=== PATIENT | male | born 1930 | race Caucasian/White ===

== ENCOUNTER 2018-11-04 16:42 | Observation (INO) ==
[2018-11-04] MEDS ORDERED: 0.9 % Sodium Chloride 500 ML IVC ONE (17:04)
--- NOTE | 2018-11-04 17:11 | Emergency Department Note ---
Disposition Clinical Impression: Symptomatic anemia Disposition: Still a Patient General Adult HPI - General Chief complaint: ED Recheck/Abnormal Lab/Rx Stated complaint: Low Hemoglobin Time Seen by Provider: 11/04/18 16:56 Source: patient Limitations: no limitations Nursing Notes Reviewed: Yes Vital Signs Reviewed: Yes - History of Present Illness HPI Narrative: Attestation note ED attending note I examined this patient and my medical decision-making was reviewed with the emergency medicine resident Dr. Jeovany Prakash. I agree with the documented findings, disposition and treatment plan as described except to the extent set forth below. Briefly: 88-year-old male recently was scoped and found to have small bleeding lesions in his intestine which were ablated. Patient has been having his hemoglobin checked which is been tingling for the past week or so. Last hemoglobin 7.7 he feels when he stands up documented pass out. Says he feels weak. Patient does take iron and has normally dark stools he is not tachycardic EKG shows no acute ischemic changes. Patient will be typed and crossed for 2 units PRBCs to be transfused with admission. Providing 30 minutes of critical care service for this patient Pain Scale: 0 - Related Data Home Medications Medication Instructions Recorded Confirmed Allopurinol [Zyloprim 100 MG] 100 mg PO DAILY 10/17/18 10/30/18 Aspirin [Lo-Dose Aspirin EC] 81 mg PO DAILY 10/17/18 10/30/18 Atorvastatin Calcium [Lipitor] 10 mg PO DAILY 10/17/18 10/30/18 Cholecalciferol (D-3) [Vitamin D] 1,000 unit PO TID 10/17/18 10/30/18 Glucosamn/Condroitn/C/Mn/[place] 2 tab PO DAILY 10/17/18 10/30/18 [[facility] Glucosamine Chondroitin Tb] Levothyroxine [Synthroid] 50 mcg PO DAILY 10/17/18 10/30/18 Previous Rx's Medication Instructions Recorded Cyanocobalamin (B-12) [Vitamin B12] 1,000 mcg PO DAILY 30 Days #30 10/19/18 tablet Ferrous Sulfate 325 mg PO BIDWM 30 Days #60 tablet 10/19/18 Metoprolol XL (24 HR) Succ [Toprol 12.5 mg PO DAILY 30 Days #15 10/19/18 Xl] tab.er.24h Omeprazole [PriLOSEC] 20 mg PO BIDAC 30 Days #60 10/19/18 capsule. PredniSONE [Deltasone] 10 mg PO QAM 10 Days #40 tablet 10/30/18 Allergies Allergy/AdvReac Type Severity Reaction Status Date / Time No Known Allergies Allergy Verified 10/17/18 17:43 Past Medical History - Past Medical History Medical history: Reports: atrial fibrillation, cancer Psychiatric history: Reports: no psych history - Social History Smoking Status: Never smoker Smokeless Tobacco Status: No Alcohol use: Reports: none Drug use: Reports: none Physical Exam - General Limitations: no limitations General appearance: alert, in no apparent distress Course Vital Signs Temperature 98.3 F 11/04/18 16:44 Pulse Rate 64 11/04/18 16:44 Respiratory Rate 18 11/04/18 16:44 Blood Pressure 133/73 11/04/18 16:44 O2 Sat by Pulse Oximetry 99 11/04/18 16:44 Temperature 98.3 F 11/04/18 16:44 Pulse Rate 64 11/04/18 16:44 Respiratory Rate 18 11/04/18 16:44 Blood Pressure 133/73 11/04/18 16:44 O2 Sat by Pulse Oximetry 99 11/04/18 16:44 Oxygen Delivery Oxygen Delivery Room Air
--- NOTE | 2018-11-04 17:11 | Emergency Department Note ---
Disposition Clinical Impression: Symptomatic anemia Disposition: Admitted As Inpatient Condition: Good Forms: ED Satisfaction Letter Time of Disposition: 18:18 General Adult HPI - General Chief complaint: ED Recheck/Abnormal Lab/Rx Stated complaint: Low Hemoglobin Time Seen by Provider: 11/04/18 16:56 Source: patient Mode of arrival: ambulatory Limitations: no limitations Nursing Notes Reviewed: Yes Vital Signs Reviewed: Yes - History of Present Illness HPI Narrative: Patient is an 88-year-old male that presents the emergency department with family for anemia. The main concern is for the patient's hemoglobin. The patient states that he has been having recurrent anemia that is progressively been trending downward. Patient has been having a hemoglobin around 8.0 for the past couple of blood draws. States the last blood draw was 7.7 was told to come here to the emergency department. Patient states that he is feeling weak and does not have energy. Patient also reports that he just feels much more fatigued. Patient denies any chest pain but does state that he has some increase in his baseline shortness of breath. Patient states that he had been on blood thinners in the hospital when he was diagnosed with age fibrillation but was not discharged on any blood thinners. Patient states that he had a decrease in his hemoglobin so he did have an upper and lower endoscopy which showed mild bleeding vessel in the upper scope which was cauterized. Pain Scale: 0 - Related Data Home Medications Medication Instructions Recorded Confirmed Allopurinol [Zyloprim 100 MG] 100 mg PO DAILY 10/17/18 10/30/18 Aspirin [Lo-Dose Aspirin EC] 81 mg PO DAILY 10/17/18 10/30/18 Atorvastatin Calcium [Lipitor] 10 mg PO DAILY 10/17/18 10/30/18 Cholecalciferol (D-3) [Vitamin D] 1,000 unit PO TID 10/17/18 10/30/18 Glucosamn/Condroitn/C/Mn/[place] 2 tab PO DAILY 10/17/18 10/30/18 [[facility] Glucosamine Chondroitin Tb] Levothyroxine [Synthroid] 50 mcg PO DAILY 10/17/18 10/30/18 Previous Rx's Medication Instructions Recorded Cyanocobalamin (B-12) [Vitamin B12] 1,000 mcg PO DAILY 30 Days #30 10/19/18 tablet Ferrous Sulfate 325 mg PO BIDWM 30 Days #60 tablet 10/19/18 Metoprolol XL (24 HR) Succ [Toprol 12.5 mg PO DAILY 30 Days #15 10/19/18 Xl] tab.er.24h Omeprazole [PriLOSEC] 20 mg PO BIDAC 30 Days #60 10/19/18 capsule. PredniSONE [Deltasone] 10 mg PO QAM 10 Days #40 tablet 10/30/18 Allergies Allergy/AdvReac Type Severity Reaction Status Date / Time No Known Allergies Allergy Verified 10/17/18 17:43 All systems ED: reviewed and negative except as stated. Constitutional: Reports: weakness. Denies: fever Cardiovascular: Denies: chest pain Respiratory: Reports: dyspnea Gastrointestinal: Denies: abdominal pain, nausea, vomiting Endocrine: Reports: fatigue Past Medical History - Past Medical History Medical history: Reports: atrial fibrillation, cancer Psychiatric history: Reports: no psych history - Social History Smoking Status: Never smoker Smokeless Tobacco Status: No Alcohol use: Reports: none Drug use: Reports: none Physical Exam - General Limitations: no limitations General appearance: alert, in no apparent distress - Head Head exam: atraumatic, normocephalic - Eye Eye exam: Present: normal appearance, EOMI - Neck Neck exam: Present: normal inspection, full ROM, trachea midline - Respiratory Respiratory exam: Present: normal lung sounds bilaterally. Absent: respiratory distress, wheezes - Cardiovascular Cardiovascular exam: Present: regular rate, normal rhythm, normal heart sounds, +S1, +S2 - Abdominal Exam Abdominal exam: Present: soft, Non-Tender, normal bowel sounds - Neurological Exam Neurological exam: Present: alert, oriented X3 - Psychiatric Psychiatric exam: Present: normal affect, normal mood - Skin Skin exam: Present: warm, dry, intact Course Vital Signs Temperature 98.3 F 11/04/18 16:44 Pulse Rate 64 11/04/18 16:44 Respiratory Rate 18 11/04/18 16:44 Blood Pressure 133/73 11/04/18 16:44 O2 Sat by Pulse Oximetry 99 11/04/18 16:44 Temperature 98.3 F 11/04/18 16:44 Pulse Rate 64 11/04/18 16:44 Respiratory Rate 18 11/04/18 16:44 Blood Pressure 133/73 11/04/18 16:44 O2 Sat by Pulse Oximetry 99 11/04/18 16:44 Oxygen Delivery Oxygen Delivery Room Air Medical Decision Making - MDM Narrative Medical decision making narrative: We will obtain basic laboratory testing and the patient will need to be admitted to the hospital for further evaluation and management. Patient will be transfus ed here in the ER. Patient will be given one unit of packed red blood cells. His hemoglobin here is 8.0. However due to being symptomatic the patient will require admission to the hospital for further evaluation and management. Patient was hemodynamically stable here in the emergency department. I called and spoke the admitting hospitalist Dr. Alvarado he has accepted the patient to their service. Patient be admitted to the hospital this time for further evaluation and management of his anemia. - Medical Records Medical records reviewed: Yes I reviewed the patient's medical records. - Lab Data Lab results reviewed: Yes I reviewed the patient's lab results. Result diagrams: 11/04/18 17:04 11/04/18 17:04 Lab Results 11/04/18 11/04/18 11/04/18 Range/Units 17:04 17:04 17:09 WBC 10.7 (4.3-11.1) K/mcL RBC 2.36 L (4.19-5.50) M/mcL Hgb 8.0 L (12.9-16.9) g/dL Hct 25.3 L (37.5-50.1) % MCV 107.2 H (83.0-100.0) fL MCH 33.9 H (28.0-33.3) pg MCHC 31.6 (31.6-35.5) g/dL RDW 16.5 H (11.5-14.5) % Plt Count 425 H (140-400) K/mcL MPV 12.1 (9.4-12.4) fL Immature Gran % 9.1 H (0-4) % Seg Neutrophils % 73.8 % Lymphocytes % 11.4 % Monocytes % 5.2 % Eosinophils % 0.2 % Basophils % 0.3 % Neutrophils # 7.9 (1.6-8.9) K/mcL Lymphocytes # 1.2 (0.6-4.6) K/mcL Monocytes # 0.6 (0.0-1.3) K/mcL Eosinophils # 0.0 (0.0-0.6) K/mcL Basophils # 0.0 (0.0-0.2) K/mcL Nucleated RBCs/100 WBC 0.4 H (0) /100 WBC Large Platelets Present A (Not Present) Polychromasia 1+ A (Not Present) Anisocytosis 1+ A (Not Present) Sodium 139 (136-145) mEq/L Potassium 4.7 (3.5-5.1) mEq/L Chloride 110 H (98-107) mEq/L Carbon Dioxide 20 L (23-29) mEq/L BUN 33 H (8-23) mg/dL Creatinine 1.43 H (0.70-1.30) mg/dL Est GFR ( Amer) 57 L (> 60) Est GFR (Non-Af Amer) 47 L (> 60) BUN/Creatinine Ratio 23 (6-26) Glucose 105 (70-105) mg/dL Calculated Osmolality 296 (280-300) Calcium 8.9 (8.6-10.3) mg/dL Total Bilirubin 0.5 (0.3-1.0) mg/dL Direct Bilirubin 0.1 (0.0-0.2) mg/dL Indirect Bilirubin 0.4 (0.0-1.2) mg/dL AST 16 (13-39) Units/L ALT 37 (7-52) Units/L Alkaline Phosphatase 82 (34-104) Units/L Troponin I 0.03 (< 0.04) ng/mL Serum Total Protein 5.8 L (6.4-8.9) g/dL Albumin 3.5 (3.5-5.7) g/dL Globulin 2.3 L (2.4-3.5) g/dL Albumin/Globulin Ratio 1.5 (1.1-2.2) Blood Type O NEGATIVE - Radiology Data Radiology results reviewed: Yes I reviewed the patient's radiology results. - EKG Data EKG #1 EKG attestation: Yes I reviewed and interpreted this EKG. EKG results narrative: EKG shows a paced rhythm which shows a heart rate of 65 bpm, HI interval 174, curious duration of 148, QTc of 469. No evidence of STEMI and EKG.
[2018-11-04 17:26] LABS: Basophils % 0.3 %; Eosinophils % 0.2 %; Hematocrit 25.3 % (37.5-50.1); Immature Granulocytes % 9.1 % (0-4); Lymphocytes # 1.2 K/mcL (0.6-4.6); Lymphocytes % 11.4 %; Mean Corpuscular HGB Conc 31.6 g/dL (31.6-35.5); Mean Corpuscular Hemoglobin 33.9 pg (28.0-33.3); Mean Corpuscular Volume 107.2 fL (83.0-100.0); Mean Platelet Volume 12.1 fL (9.4-12.4); Monocytes # 0.6 K/mcL (0.0-1.3); Monocytes % 5.2 %; Neutrophils # 7.9 K/mcL (1.6-8.9); Nucleated Red Blood Cells 0.4 /100 WBC (0); Platelet Count 425 K/mcL (140-400); Red Blood Count 2.36 M/mcL (4.19-5.50); Red Cell Distribution Width 16.5 % (11.5-14.5); Segmented Neutrophils % 73.8 %
[2018-11-04 17:48] LABS: Albumin 3.5 g/dL (3.5-5.7); Albumin/Globulin Ratio 1.5 (1.1-2.2); Bilirubin,Direct 0.1 mg/dL (0.0-0.2); Bilirubin,Indirect 0.4 mg/dL (0.0-1.2); Bilirubin,Total 0.5 mg/dL (0.3-1.0); Calcium 8.9 mg/dL (8.6-10.3); Globulin 2.3 g/dL (2.4-3.5); Potassium 4.7 mEq/L (3.5-5.1); Total Protein 5.8 g/dL (6.4-8.9); Troponin I 0.03 ng/mL (< 0.04)
[2018-11-04 17:55] LABS: Large Platelets Present (Not Present)
[2018-11-04 17:56] LABS: Polychromasia 1+ (Not Present)
[2018-11-04 17:57] LABS: Anisocytosis 1+ (Not Present)
[2018-11-04] MEDS ORDERED: 0.9 % Sodium Chloride 250 ML ONE (19:04)
--- NOTE | 2018-11-04 23:09 | Internal Med History&Physical ---
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 He also had nonbleeding internal hemorrhoids. It was recommended he be on a PPI and have outpatient follow-up. As an outpatient he has had multiple hemoglobin checks first reported at 8.7 then subsequently seen at 8.0 on 2 occasions which reassured his PCP for stability however today he was told that his last blood draw showed his hemoglobin at 7.7 and was told to come to emergency department. He reports feeling significantly weaker than usual, lethargic and apathetic. He says he is easily fatigued with minor efforts and feels lightheaded. He has been more short of breath than his baseline. Not had any nausea, vomiting, abdominal pain, hematemesis or melena noted. He was not discharged on anticoagulants. Vitals: Reviewed General: Well developed male lying comfortably in bed in no acute distress. Skin: Warm, pale, supple. HEENT: Moist mucous membranes. + conjunctivae pallor. Neck: No lymphadenopathy. No JVD. No carotid bruits. No palpable thyroid. Chest: Normal thoracic expansion. Normal breath sounds. Clear to auscultation. Heart: Normal S1 & S2; rhythmic. No rubs or murmurs. Abdomen: Non-distended, soft and non-tender to palpation. No peritoneal reaction. Extremities: No clubbing, cyanosis or edema. No calf tenderness. Normal distal pulses. Neurological: Awake, alert and oriented to person, place and time. No focal deficits. Psych: Affect appropriate. Past Med Surg Social Fam HX - Past Medical History Medical history: atrial fibrillation, cancer Additional medical history: Skin Cancer Psychiatric history: no psych history - Past Surgical History Surgical History: pacemaker Additional surgical history: Brain Tumor removed. Skin Cancer removed - Social History Smoking Status: Never smoker Smokeless Tobacco Status: No Alcohol use: none Drug use: none Internal Medicine - H&P: Meds Allopurinol [Zyloprim 100 MG] 100 mg PO DAILY 10/17/18 [History] Aspirin [Lo-Dose Aspirin EC] 81 mg PO DAILY 10/17/18 [History] Atorvastatin Calcium [Lipitor] 10 mg PO DAILY 10/17/18 [History] Cholecalciferol (D-3) [Vitamin D] 1,000 unit PO TID 10/17/18 [History] Glucosamn/Condroitn/C/Mn/[place] [[facility] Glucosamine Chondroitin Tb] 2 tab PO DAILY 10/17/18 [History] Levothyroxine [Synthroid] 50 mcg PO DAILY 10/17/18 [History] Cyanocobalamin (B-12) [Vitamin B12] 1,000 mcg PO DAILY 30 Days #30 tablet 10/19/18 [Rx] Ferrous Sulfate 325 mg PO BIDWM 30 Days #60 tablet 10/19/18 [Rx] Metoprolol XL (24 HR) Succ [Toprol Xl] 12.5 mg PO DAILY 30 Days #15 tab.er.24h 10/19/18 [Rx] Omeprazole [PriLOSEC] 20 mg PO BIDAC 30 Days #60 capsule.dr 10/19/18 [Rx] PredniSONE [Deltasone] 10 mg PO QAM 10 Days #40 tablet 10/30/18 [Rx] Allergy/AdvReac Type Severity Reaction Status Date / Time No Known Allergies Allergy Verified 10/17/18 17:43 All Systems PM: A 10-system review of systems was performed and is negative for pertinent findings except as documented above in the HPI. Family history reviewed and found non-contributory. - Constitutional Vitals: Temp Pulse Resp BP Pulse Ox 98.0 F 60 15 110/64 97 11/04/18 22:32 11/04/18 22:32 11/04/18 22:32 11/04/18 22:32 11/04/18 22:32 Exam: . Internal Med - H&P Results - Labs CBC & Chem 7: 11/04/18 17:04 11/04/18 17:04 Labs: Short CBC 11/04/18 Range/Units 17:04 WBC 10.7 (4.3-11.1) K/mcL Hgb 8.0 L (12.9-16.9) g/dL Hct 25.3 L (37.5-50.1) % Plt Count 425 H (140-400) K/mcL Neutrophils # 7.9 (1.6-8.9) K/mcL BMP 11/04/18 17:04 Sodium 139 Potassium 4.7 Chloride 110 H Carbon Dioxide 20 L BUN 33 H Creatinine 1.43 H Glucose 105 Calcium 8.9 Cardiac Enzymes 11/04/18 Range/Units 17:04 Troponin I 0.03 (< 0.04) ng/mL Liver Function 11/04/18 Range/Units 17:04 Total Bilirubin 0.5 (0.3-1.0) mg/dL Direct Bilirubin 0.1 (0.0-0.2) mg/dL AST 16 (13-39) Units/L ALT 37 (7-52) Units/L Alkaline Phosphatase 82 (34-104) Units/L Albumin 3.5 (3.5-5.7) g/dL - Assessment and Plan (1) Symptomatic anemia Current Visit: Yes Status: Acute Assessment and plan: Concern that it may be secondary to a slowly bleeding gastrointestinal lesion. Will transfuse 1U pRBC tonight and recheck his values in the morning. Will give IV PPI BID and keep NPO in the interim. He may require a second look scope or a bleeding scan at some point if this continues. (2) Paroxysmal atrial fibrillation Current Visit: Yes Status: Acute Assessment and plan: No antiplatelet/anticoagulation for now. (3) Gout Current Visit: Yes Status: Chronic Assessment and plan: Had a recent flare for which he was placed on steroids. Will discontinue prednisone as these could cause stomach ulcers if not given adequate gastric protection. Currently he is without pain. Qualifiers: Gout site: toe Gout etiology: unspecified cause Chronicity: chronic Laterality: right Presence of tophus: without tophus Qualified Code(s): [id number].9XX0 - Chronic gout, unspecified, without tophus (tophi) (4) Pacemaker Current Visit: No Status: Chronic - Time Spent With Patient Total time spent is greater than 50% in coordination of care (as documented) at patient's floor/unit and/or counseling patient: Greater than 35 minutes
[2018-11-05 03:37] LABS: BUN/Creatinine Ratio 24 (6-26); Blood Urea Nitrogen 30 mg/dL (8-23); Calcium 8.1 mg/dL (8.6-10.3); Carbon Dioxide 20 mEq/L (23-29); Chloride 112 mEq/L (98-107); Glucose 78 mg/dL (70-105); Osmolality,Calculated 293 (280-300); Potassium 3.9 mEq/L (3.5-5.1); Sodium 139 mEq/L (136-145); eGFR For Non-African Americans 54 (> 60)
[2018-11-05 03:38] LABS: Basophils % 0.3 %; Eosinophils # 0.1 K/mcL (0.0-0.6); Eosinophils % 1.1 %; Hematocrit 24.9 % (37.5-50.1); Immature Granulocytes % 7.8 % (0-4); Lymphocytes % 27.5 %; Mean Corpuscular HGB Conc 32.1 g/dL (31.6-35.5); Mean Corpuscular Hemoglobin 33.8 pg (28.0-33.3); Mean Corpuscular Volume 105.1 fL (83.0-100.0); Monocytes # 0.6 K/mcL (0.0-1.3); Monocytes % 8.1 %; Neutrophils # 4.1 K/mcL (1.6-8.9); Nucleated Red Blood Cells 0.4 /100 WBC (0); Platelet Count 294 K/mcL (140-400); Red Blood Count 2.37 M/mcL (4.19-5.50); Red Cell Distribution Width 17.9 % (11.5-14.5); Segmented Neutrophils % 55.2 %
[2018-11-05 04:17] LABS: Anisocytosis 1+ (Not Present); Platelet Estimate Normal (Normal); Polychromasia 1+ (Not Present)
[2018-11-05] MEDS: Pantoprazole 40 MG VIAL IVP SCH ×2 (05:38→17:40)
[2018-11-05] MEDS ORDERED: predniSONE 10 MG TABLET PO SCH (09:00)
[2018-11-05] MEDS: Cyanocobalamin (B-12) 1,000 MCG TABLET PO SCH (09:48)
[2018-11-05] MEDS: Metoprolol XL (24 HR) Succ 25 MG TAB.ER.24H PO SCH (09:49)
--- NOTE | 2018-11-05 11:19 | General Surgery Consult Note ---
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 which were cauterized, small hiatal hernia and mild Schatzki ring -Colonoscopy 10/19/18: 2 nonbleeding polyps ascending colon, diverticulosis without evidence of bleeding, non bleeding internal hemorrhoids -Hgb 8 on arrival which is about what has been over last couple weeks -No hematemesis, hematochezia, melena or evidence of any bleeding -As no evidence of high volume bleed, recent reassuring upper/lower scopes there is no indication to repeat scopes -Surgery will sign off but available if symptoms change History of Present Illness Consult date: 11/05/18 Reason for consult: other (Symptomatic anemia) Requesting physician: Víctor Emery History of present illness: 88 year old man with pmh with pacemaker 2/2 syncopal episodes, recent dx pafib 2 weeks ago during which he was started on heparin infusion and had acute drop in hgb from 10-7.6. He had upper/lower endoscopies which did not show evidence of active bleeding source. Multiple checks of hgb over last couple weeks showed fairly stable hgb of . Yesterday, his hgb was found to be 7.7 and told to go to ED. He has been having more fatigue, weakness, lethargy compared to normal and occasional lightheadedness and dyspnea. He denies abdominal pain, N/V, hematemesis, hematochezia, melena or lc bleeding. He received 1 unit prbc and is somewhat improved feeling today. He again denies abdominal pain, N/V, hematemesis, hematochezia, melena or lc bleeding since admission. Past Med Surg Social Fam HX - Past Medical History Medical history: atrial fibrillation, cancer Additional medical history: Skin Cancer Psychiatric history: no psych history - Past Surgical History Surgical History: pacemaker Additional surgical history: Brain Tumor removed. Skin Cancer removed - Social History Smoking Status: Never smoker Smokeless Tobacco Status: No Alcohol use: none Drug use: none Medications and Allergies RX: Allopurinol [Zyloprim 100 MG] 100 mg PO DAILY 10/17/18 [History] RX: Aspirin [Lo-Dose Aspirin EC] 81 mg PO DAILY 10/17/18 [History] RX: Atorvastatin Calcium [Lipitor] 10 mg PO DAILY 10/17/18 [History] RX: Cholecalciferol (D-3) [Vitamin D] 1,000 unit PO TID 10/17/18 [History] RX: Glucosamn/Cond[place]n/C/Mn/[place] [[facility] Glucosamine Chondroitin Tb] 2 tab PO DAILY 10/17/18 [History] RX: Levothyroxine [Synthroid] 50 mcg PO DAILY 10/17/18 [History] RX: Cyanocobalamin (B-12) [Vitamin B12] 1,000 mcg PO DAILY 30 Days #30 tablet 10/19/18 [Rx] RX: Ferrous Sulfate 325 mg PO BIDWM 30 Days #60 tablet 10/19/18 [Rx] RX: Metoprolol XL (24 HR) Succ [Toprol Xl] 12.5 mg PO DAILY 30 Days #15 tab.er.24h 10/19/18 [Rx] RX: Omeprazole [PriLOSEC] 20 mg PO BIDAC 30 Days #60 capsule. 10/19/18 [Rx] RX: PredniSONE [Deltasone] 10 mg PO QAM 10 Days #40 tablet 10/30/18 [Rx] Allergy/AdvReac Type Severity Reaction Status Date / Time No Known Allergies Allergy Verified 10/17/18 17:43 Review of Systems All systems PM: The remainder of the systems were reviewed and are negative General Surgery Exam Initial Vital Signs Temp Pulse Resp BP Pulse Ox 98.3 F 64 18 133/73 99 11/04/18 16:44 11/04/18 16:44 11/04/18 16:44 11/04/18 16:44 11/04/18 16:44 - General physical appearance well developed, well nourished, no distress - Eyes normal ocular movement - ENT normal mucosa - Neck trachea midline - Respiratory normal expansion, normal respiratory effort, clear to auscultation - Cardiovascular Cardiovascular exam: Present: RRR. Absent: bradycardia, tachycardia, irregular rhythm, murmurs, clicks, rubs, gallop, distant heart sounds, JVD - Abdomen Abdomen general surgery: Present: bowel sounds present, soft, non tender. Absent: distended, tender, organomegaly, masses, guarding, rebound, rigid - Integumentary Integumentary general surgery: Present: warm and dry, no abnormal pigmentation - Neurologic Present: CN 2-12 grossly intact, normal coordination - Psychiatric Psychiatric general surgery: Present: A&Ox3, appropriate Exam Initial Vital Signs Temp Pulse Resp BP Pulse Ox 98.3 F 64 18 133/73 99 11/04/18 16:44 11/04/18 16:44 11/04/18 16:44 11/04/18 16:44 11/04/18 16:44 Results - Labs 11/05/18 02:49 11/05/18 02:49 Abnormal lab results RBC 2.37 M/mcL (4.19-5.50) L 11/05/18 02:49 Hgb 8.0 g/dL (12.9-16.9) L 11/05/18 02:49 Hct 24.9 % (37.5-50.1) L 11/05/18 02:49 MCV 105.1 fL (83.0-100.0) H 11/05/18 02:49 MCH 33.8 pg (28.0-33.3) H 11/05/18 02:49 RDW 17.9 % (11.5-14.5) H 11/05/18 02:49 Immature Gran % 7.8 % (0-4) H 11/05/18 02:49 Nucleated RBCs/100 WBC 0.4 /100 WBC (0) H 11/05/18 02:49 Large Platelets Present (Not Present) A 11/04/18 17:04 Polychromasia 1+ (Not Present) A 11/05/18 02:49 Anisocytosis 1+ (Not Present) A 11/05/18 02:49 Chloride 112 mEq/L (98-107) H 11/05/18 02:49 Carbon Dioxide 20 mEq/L (23-29) L 11/05/18 02:49 BUN 30 mg/dL (8-23) H 11/05/18 02:49 Est GFR (Non-Af Amer) 54 (> 60) L 11/05/18 02:49 Calcium 8.1 mg/dL (8.6-10.3) L 11/05/18 02:49 Serum Total Protein 5.8 g/dL (6.4-8.9) L 11/04/18 17:04 Globulin 2.3 g/dL (2.4-3.5) L 11/04/18 17:04 Diabetes panel 11/04/18 11/05/18 Range/Units 17:04 02:49 Sodium 139 139 (136-145) mEq/L Potassium 4.7 3.9 (3.5-5.1) mEq/L Chloride 110 H 112 H (98-107) mEq/L Carbon Dioxide 20 L 20 L (23-29) mEq/L BUN 33 H 30 H (8-23) mg/dL Creatinine 1.43 H 1.27 (0.70-1.30) mg/dL Glucose 105 78 (70-105) mg/dL Calcium 8.9 8.1 L (8.6-10.3) mg/dL AST 16 (13-39) Units/L ALT 37 (7-52) Units/L Alkaline Phosphatase 82 (34-104) Units/L Albumin 3.5 (3.5-5.7) g/dL Calcium panel 11/04/18 11/05/18 Range/Units 17:04 02:49 Calcium 8.9 8.1 L (8.6-10.3) mg/dL Albumin 3.5 (3.5-5.7) g/dL Pituitary panel 11/04/18 11/05/18 Range/Units 17:04 02:49 Sodium 139 139 (136-145) mEq/L Potassium 4.7 3.9 (3.5-5.1) mEq/L Chloride 110 H 112 H (98-107) mEq/L Carbon Dioxide 20 L 20 L (23-29) mEq/L BUN 33 H 30 H (8-23) mg/dL Creatinine 1.43 H 1.27 (0.70-1.30) mg/dL Glucose 105 78 (70-105) mg/dL Calcium 8.9 8.1 L (8.6-10.3) mg/dL Adrenal panel 11/04/18 11/05/18 Range/Units 17:04 02:49 Sodium 139 139 (136-145) mEq/L Potassium 4.7 3.9 (3.5-5.1) mEq/L Chloride 110 H 112 H (98-107) mEq/L Carbon Dioxide 20 L 20 L (23-29) mEq/L BUN 33 H 30 H (8-23) mg/dL Creatinine 1.43 H 1.27 (0.70-1.30) mg/dL Glucose 105 78 (70-105) mg/dL Calcium 8.9 8.1 L (8.6-10.3) mg/dL Total Bilirubin 0.5 (0.3-1.0) mg/dL AST 16 (13-39) Units/L ALT 37 (7-52) Units/L Alkaline Phosphatase 82 (34-104) Units/L Albumin 3.5 (3.5-5.7) g/dL All other labs normal. Consult Discharge Plan - Plan Referrals: Damian Anaya, [Primary Care Provider] - 11/25/18 3:30 pm <Dipak Block - Last Filed: 11/05/18 17:05> Date of Encounter: 11/05/18 Review of Systems All systems PM: The remainder of the systems were reviewed and are negative General Surgery Exam Initial Vital Signs Temp Pulse Resp BP Pulse Ox 98.3 F 64 18 133/73 99 11/04/18 16:44 11/04/18 16:44 11/04/18 16:44 11/04/18 16:44 11/04/18 16:44 Exam Initial Vital Signs Temp Pulse Resp BP Pulse Ox 98.3 F 64 18 133/73 99 11/04/18 16:44 11/04/18 16:44 11/04/18 16:44 11/04/18 16:44 11/04/18 16:44 Results - Labs 11/05/18 02:49 11/05/18 02:49 Abnormal lab results RBC 2.37 M/mcL (4.19-5.50) L 11/05/18 02:49 Hgb 8.0 g/dL (12.9-16.9) L 11/05/18 02:49 Hct 24.9 % (37.5-50.1) L 11/05/18 02:49 MCV 105.1 fL (83.0-100.0) H 11/05/18 02:49 MCH 33.8 pg (28.0-33.3) H 11/05/18 02:49 RDW 17.9 % (11.5-14.5) H 11/05/18 02:49 Immature Gran % 7.8 % (0-4) H 11/05/18 02:49 Nucleated RBCs/100 WBC 0.4 /100 WBC (0) H 11/05/18 02:49 Large Platelets Present (Not Present) A 11/04/18 17:04 Polychromasia 1+ (Not Present) A 11/05/18 02:49 Anisocytosis 1+ (Not Present) A 11/05/18 02:49 Chloride 112 mEq/L (98-107) H 11/05/18 02:49 Carbon Dioxide 20 mEq/L (23-29) L 11/05/18 02:49 BUN 30 mg/dL (8-23) H 11/05/18 02:49 Est GFR (Non-Af Amer) 54 (> 60) L 11/05/18 02:49 Calcium 8.1 mg/dL (8.6-10.3) L 11/05/18 02:49 Serum Total Protein 5.8 g/dL (6.4-8.9) L 11/04/18 17:04 Globulin 2.3 g/dL (2.4-3.5) L 11/04/18 17:04 Diabetes panel 11/04/18 11/05/18 Range/Units 17:04 02:49 Sodium 139 139 (136-145) mEq/L Potassium 4.7 3.9 (3.5-5.1) mEq/L Chloride 110 H 112 H (98-107) mEq/L Carbon Dioxide 20 L 20 L (23-29) mEq/L BUN 33 H 30 H (8-23) mg/dL Creatinine 1.43 H 1.27 (0.70-1.30) mg/dL Glucose 105 78 (70-105) mg/dL Calcium 8.9 8.1 L (8.6-10.3) mg/dL AST 16 (13-39) Units/L ALT 37 (7-52) Units/L Alkaline Phosphatase 82 (34-104) Units/L Albumin 3.5 (3.5-5.7) g/dL Calcium panel 11/04/18 11/05/18 Range/Units 17:04 02:49 Calcium 8.9 8.1 L (8.6-10.3) mg/dL Albumin 3.5 (3.5-5.7) g/dL Pituitary panel 11/04/18 11/05/18 Range/Units 17:04 02:49 Sodium 139 139 (136-145) mEq/L Potassium 4.7 3.9 (3.5-5.1) mEq/L Chloride 110 H 112 H (98-107) mEq/L Carbon Dioxide 20 L 20 L (23-29) mEq/L BUN 33 H 30 H (8-23) mg/dL Creatinine 1.43 H 1.27 (0.70-1.30) mg/dL Glucose 105 78 (70-105) mg/dL Calcium 8.9 8.1 L (8.6-10.3) mg/dL Adrenal panel 11/04/18 11/05/18 Range/Units 17:04 02:49 Sodium 139 139 (136-145) mEq/L Potassium 4.7 3.9 (3.5-5.1) mEq/L Chloride 110 H 112 H (98-107) mEq/L Carbon Dioxide 20 L 20 L (23-29) mEq/L BUN 33 H 30 H (8-23) mg/dL Creatinine 1.43 H 1.27 (0.70-1.30) mg/dL Glucose 105 78 (70-105) mg/dL Calcium 8.9 8.1 L (8.6-10.3) mg/dL Total Bilirubin 0.5 (0.3-1.0) mg/dL AST 16 (13-39) Units/L ALT 37 (7-52) Units/L Alkaline Phosphatase 82 (34-104) Units/L Albumin 3.5 (3.5-5.7) g/dL All other labs normal. - Attending Attestation I examined this patient and my medical decision-making was reviewed with the Resident Physician. I agree with the documented findings, disposition and treatment plan as described except to the extent set forth below. The patient is seen and evaluated on morning rounds with resident. I personally reviewed the consult and EGD and colonoscopy performed by Dr. South just 2 weeks ago. The patient had some arteriovenous malformations that were not actively bleeding at that time and were not treated. Since that time the patient has remained anemic. The patient denies seeing visible bleeding in the stool or any hematemesis. He denies any melanotic stools. At this point there is no clinical sign of new onset gastrointestinal bleeding that may result in this level of anemia. I do not recommend repeat endoscopy or colonoscopy at this point unless there is clinical bleeding Dipak Block MD FACS
[2018-11-05] MEDS: predniSONE 10 MG TABLET PO SCH (12:24)
--- NOTE | 2018-11-05 15:15 | Internal Med Progress Note ---
Hospitalist Progress Note - Encounter Date of Encounter: 11/05/18 Time of Encounter: 15:12 - Subjective Interval History: I have seen and evaluated the patient at bedside. Patient voices no complaints, denies chest pain, shortness of breath, nausea or vomiting. - Exam Vitals: Temp Pulse Resp BP Pulse Ox 97.7 F 94 14 102/64 97 11/05/18 07:38 11/05/18 07:38 11/05/18 07:38 11/05/18 07:38 11/05/18 07:38 Exam: Vitals: Reviewed. General: Alert and oriented 4. In no distress. Skin: Normal color, no rash, no lesions. HEENT: EOM, pupils equal, round and reactive. Cardiovascular: irregularly, irregular, normal S1 & S2, no rubs, murmurs or gallops. Lungs: CTA b/l, no wheezes or crackles. Abdomen: Soft, non-tender, no rigidity. Extremities: No deformity, no edema Neurological: Normal cognition and motor skills. Rest of the physical exam is non contributory - Assessment and Plan (1) Symptomatic anemia Current Visit: Yes Status: Acute Assessment and Plan: Macrocytic anemia with recent GI workup, negative for bleed. Continue ferrous sulfate 325 by mouth twice a day, and B12 replacement. Will monitor H&H in patient for at least 24 hours and will transfuse per protocol Surgery was consulted recommended against intervention as patient had a resent GI work up and was negative for active bleeding. Continue PPIs repeat cbc at 7pm (2) Paroxysmal atrial fibrillation Current Visit: Yes Status: Chronic Assessment and Plan: Rate controlled on metoprolol 2.5 mg by mouth daily. Off anticoagulations due to history of anemia requiring blood transfusion. and angidysplacia on EGD (3) Gout Current Visit: Yes Status: Chronic Assessment and Plan: Patient on a prednisone taper, continue home medication. On allopurinol 100 mg by mouth daily. (4) Hyperlipidemia Current Visit: Yes Status: Chronic Assessment and Plan: On atorvastatin 10 mg by mouth daily. DVT Prophylaxis: Intermittent pneumatic compression for DVT prophylaxis. - Summary of Assessment and Plan Summary of Assessment and Plan: Patient to remain in the hospital to monitor H&H. Potential discharge tomorrow morning. - Time Spent with Patient Total time spent is greater than 50% in coordination of care (as documented) at patient's floor/unit and/or counseling patient: Greater than 35 minutes (40) Plan of Care Discussed with: patient (and the nurse) Internal Medicine: Result - Labs CBC & Chem 7: 11/05/18 02:49 11/05/18 02:49 Labs: Short CBC 11/04/18 11/05/18 Range/Units 17:04 02:49 WBC 10.7 7.4 (4.3-11.1) K/mcL Hgb 8.0 L 8.0 L (12.9-16.9) g/dL Hct 25.3 L 24.9 L (37.5-50.1) % Plt Count 425 H 294 (140-400) K/mcL Neutrophils # 7.9 4.1 (1.6-8.9) K/mcL BMP 11/04/18 11/05/18 17:04 02:49 Sodium 139 139 Potassium 4.7 3.9 Chloride 110 H 112 H Carbon Dioxide 20 L 20 L BUN 33 H 30 H Creatinine 1.43 H 1.27 Glucose 105 78 Calcium 8.9 8.1 L Cardiac Enzymes 11/04/18 Range/Units 17:04 Troponin I 0.03 (< 0.04) ng/mL Liver Function 11/04/18 Range/Units 17:04 Total Bilirubin 0.5 (0.3-1.0) mg/dL Direct Bilirubin 0.1 (0.0-0.2) mg/dL AST 16 (13-39) Units/L ALT 37 (7-52) Units/L Alkaline Phosphatase 82 (34-104) Units/L Albumin 3.5 (3.5-5.7) g/dL Consult Discharge Plan - Plan Referrals: Damian Anaya DO [Primary Care Provider] - 11/25/18 3:30 pm (3) Gout Qualifiers: Gout site: toe Gout etiology: unspecified cause Chronicity: chronic Laterality: right Presence of tophus: without tophus Qualified Code(s): M1A.9XX0 - Chronic gout, unspecified, without tophus (tophi) (4) Hyperlipidemia Qualifiers: Hyperlipidemia type: unspecified Qualified Code(s): E78.5 - Hyperlipidemia, unspecified
[2018-11-05 19:33] LABS: Basophils % 0.2 %; Eosinophils % 0.3 %; Hematocrit 27.8 % (37.5-50.1); Immature Granulocytes % 10.5 % (0-4); Lymphocytes # 0.8 K/mcL (0.6-4.6); Lymphocytes % 12.2 %; Mean Corpuscular HGB Conc 32.4 g/dL (31.6-35.5); Mean Corpuscular Hemoglobin 34.1 pg (28.0-33.3); Mean Corpuscular Volume 105.3 fL (83.0-100.0); Mean Platelet Volume 12.3 fL (9.4-12.4); Monocytes # 0.4 K/mcL (0.0-1.3); Monocytes % 6.3 %; Neutrophils # 4.4 K/mcL (1.6-8.9); Nucleated Red Blood Cells 0.3 /100 WBC (0); Platelet Count 323 K/mcL (140-400); Red Blood Count 2.64 M/mcL (4.19-5.50); Red Cell Distribution Width 18.5 % (11.5-14.5); Segmented Neutrophils % 70.5 %
[2018-11-05 19:50] LABS: Ovalocytes 1+ (Not Present)
[2018-11-05 19:51] LABS: Platelet Estimate Normal (Normal); Tear Drop Cells 1+ (Not Present)
[2018-11-06] MEDS: Pantoprazole 40 MG VIAL IVP SCH (06:21)
[2018-11-06 06:59] VITALS: BP 100/56
[2018-11-06] MEDS: Metoprolol XL (24 HR) Succ 25 MG TAB.ER.24H PO SCH (09:07)
[2018-11-06] MEDS: Cyanocobalamin (B-12) 1,000 MCG TABLET PO SCH (09:07)
[2018-11-06] MEDS: predniSONE 10 MG TABLET PO SCH (09:07)
[2018-11-06 09:30] LABS: Hematocrit 30.1 % (37.5-50.1); Hemoglobin 9.5 g/dL (12.9-16.9); Mean Corpuscular HGB Conc 31.6 g/dL (31.6-35.5); Mean Corpuscular Hemoglobin 33.3 pg (28.0-33.3); Mean Corpuscular Volume 105.6 fL (83.0-100.0); Mean Platelet Volume 12.2 fL (9.4-12.4); Monocytes # 0.7 K/mcL (0.0-1.3); Nucleated Red Blood Cells 0.3 /100 WBC (0); Platelet Count 317 K/mcL (140-400); Red Blood Count 2.85 M/mcL (4.19-5.50)
[2018-11-06 09:43] LABS: Calcium 8.9 mg/dL (8.6-10.3); Phosphorous 3.4 mg/dL (2.7-4.5); Potassium 4.2 mEq/L (3.5-5.1)
[2018-11-06 10:31] LABS: Eosinophils # 0.2 K/mcL (0.0-0.6); Lymphocytes # 1.8 K/mcL (0.6-4.6); Neutrophils # 5.1 K/mcL (1.6-8.9); Platelet Estimate Normal (Normal)
--- NOTE | 2018-11-06 12:12 | Discharge Summary ---
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 We admitted him with symptomatic anemia. His hemoglobin at admission was 8.0. It was 8.9 (10/19/18), when he was leaving the hospital after previous hospitalization. During that hospitalization we discovered him to have atrial fibrillation. The patient was put on IV heparin drip. Then he developed GI bleeding. GI service was consulted; they proceeded with upper and lower endoscopy. They found 2 nonbleeding angiodysplastic lesions in the stomach. They were catheterized. They also found 2 sessile nonbleeding polyps in the descending colon and multiple large diverticula in the sigmoid colon (without evidence for bleeding). They also found nonbleeding internal hemorrhoids. During this hospitalization we did not find any active bleeding. His hemoglobin was stable. He felt better after transfusion of 1 unit of packed red blood cells. The patient was not getting anticoagulation before this hospitalization and during this hospitalization. We decided not to start anticoagulation after this discharge. EKG done at admission showed atrial sensed ventricular paced complexes with a rate of 65/min. CONDITION AT DISCHARGE: He feels good. Denies abdominal pain, nausea and vomiting. Denies chest pain and difficulty breathing. He has normal urination. Skin: Free of rash and discoloration. Respiratory: Normal breath sounds with no crackles and wheezes bilaterally. CV: Heart is regular with no gallop or murmur. GI: Abdomen is flat and soft with no palpable mass or visceromegaly. Neuro exam: There is no focal deficits. Normal speech, swallowing and gait. SEE DISCHARGE ORDERS/MEDICATIONS The patient will be checking his H&H every month for at least 3-6 monthstarting in 2 weeks. Anticoagulation can be started sometime laterwhen he does not show any GI bleeding for prolonged periods of time. Discharge discussed with: patient, family - Time Spent with Patient Total time spent providing and/or coordinating discharge services: Time spent: Greater than 30 minutes Specific discharge activities: H&H every month for 6 months; starting in about 2 weeks... - Discharge Medications Prescriptions: Continue Glucosamn/[place]n/C/Mn/[place] [[facility] Glucosamine Chondroitin Tb] 2 tab PO DAILY Cholecalciferol (D-3) [Vitamin D] 1,000 unit PO TID Aspirin [Lo-Dose Aspirin EC] 81 mg PO DAILY Atorvastatin Calcium [Lipitor] 10 mg PO DAILY Allopurinol [Zyloprim 100 MG] 100 mg PO DAILY Levothyroxine [Synthroid] 50 mcg PO DAILY Cyanocobalamin (B-12) [Vitamin B12] 1,000 mcg PO DAILY 30 Days #30 tablet Ferrous Sulfate 325 mg PO BIDWM 30 Days #60 tablet Metoprolol XL (24 HR) Succ [Toprol Xl] 12.5 mg PO DAILY 30 Days #15 tab.er.24h Omeprazole [PriLOSEC] 20 mg PO BIDAC 30 Days #60 capsule.dr Discontinued PredniSONE [Deltasone] 10 mg PO QAM 10 Days #40 tablet Home Medications: Allopurinol [Zyloprim 100 MG] 100 mg PO DAILY 10/17/18 [History] Aspirin [Lo-Dose Aspirin EC] 81 mg PO DAILY 10/17/18 [History] Atorvastatin Calcium [Lipitor] 10 mg PO DAILY 10/17/18 [History] Cholecalciferol (D-3) [Vitamin D] 1,000 unit PO TID 10/17/18 [History] Glucosamn/[place]/C/Mn/[place] [[facility] Glucosamine Chondroitin Tb] 2 tab PO DAILY 10/17/18 [History] Levothyroxine [Synthroid] 50 mcg PO DAILY 10/17/18 [History] Cyanocobalamin (B-12) [Vitamin B12] 1,000 mcg PO DAILY 30 Days #30 tablet 10/19/18 [Rx] Ferrous Sulfate 325 mg PO BIDWM 30 Days #60 tablet 10/19/18 [Rx] Metoprolol XL (24 HR) Succ [Toprol Xl] 12.5 mg PO DAILY 30 Days #15 tab.er.24h 10/19/18 [Rx] Omeprazole [PriLOSEC] 20 mg PO BIDAC 30 Days #60 capsule.dr 10/19/18 [Rx] Allergies/Adverse Reactions: Allergy/AdvReac Type Severity Reaction Status Date / Time No Known Allergies Allergy Verified 10/17/18 17:43 Date of admission: 11/04/18 19:07 Primary care physician: Damian Anaya DO Consults: 11/05/18 08:19 Consult to Surgery [CONS] Routine Consulting Provider: [facility] Reason for Consult: symptomatic anemia. recent GI bleeding Call Completed: Yes Discharging clinician: Pasha Levy Anticipated date of discharge: 11/06/18 - Constitutional Vitals: Temp Pulse Resp BP Pulse Ox 97.4 F L 69 18 100/56 98 11/06/18 06:55 11/06/18 06:55 11/06/18 06:55 11/06/18 06:55 11/06/18 06:55 General appearance: Present: A&O X 3, no acute distress, answers questions appropriately Exam: xx - Patient Status Disposition: Home, Self-Care Condition: Good Functional capacity at discharge: independent ambulation Overall status at discharge: patient is back to baseline - Discharge Instructions Follow Up With: Damian Anaya DO [Primary Care Provider] - 11/25/18 3:30 pm Additional Instructions: H&H every month for 6 months; starting in about 2 weeks... - Diet and Activity Activity: increase activity as tolerated Diet: advance to your usual diet
--- NOTE | 2018-11-07 19:02 | Electrocardiograph Report ---
[facility] Test Date: 2018-11-04 Pat Name: Abimael Romero Department: [id number] Room: 3A24 Gender: M Technical Writer: : 1930 Requested By: Jv Burris Order Number: [id number] Reading MD: Ramon Kee Measurements Intervals [place] Rate: 65 P: 43 [place]: 174 QRS: -58 QRSD: 148 T: 57 QT: 451 QTc: 469 Interpretive Statements Atrial-sensed ventricular-paced complexes Electronically Signed On 11-07-2018 19:00:03 EDT by Ramon Kee
== END 2018-11-06 13:28 | disposition home or self-care (01) ==
LOC: 3ANU 16:42 → EMEROOARM 16:42 → SUATTDRO 19:07 → 3ANU 21:01
PROVIDERS: ADMIT Internal Medicine; ATTEND Internal Medicine

== ENCOUNTER 2019-12-07 06:44 | Inpatient (IN) ==
[2019-12-07] MEDS ORDERED: Naloxone 0.4 MG/ML INJ IVP PRN (10:20)
[2019-12-07] MEDS: Norepinephrine 8 MG in 0.9 % Sodium Chloride 250 ML IVC SCH (10:46)
[2019-12-07 11:25] LABS: Mean Platelet Volume 12.5 fL (9.4-12.4)
[2019-12-07 11:26] LABS: Hemoglobin 8.7 g/dL (12.9-16.9); Mean Corpuscular HGB Conc 31.1 g/dL (31.6-35.5); Mean Corpuscular Hemoglobin 31.5 pg (28.0-33.3); Mean Corpuscular Volume 101.4 fL (83.0-100.0); Platelet Count 194 K/mcL (140-400); Red Blood Count 2.76 M/mcL (4.19-5.50); Red Cell Distribution Width 20.8 % (11.5-14.5)
[2019-12-07 11:29] LABS: White Blood Count 49.9 K/mcL (4.3-11.1)
[2019-12-07 11:33] LABS: ABG Base Excess -5 mEq/L (-2 to 3); ABG HCO3 19 mEq/L (21-27); ABG Oxygen Saturation 97 % (95-98); ABG PCO2 30 mmHg (35-45); ABG PH 7.41 pH Units (7.32-7.45); ABG PO2 85 mmHg (85-104); ABG TCO2 20 mEq/L (20-26)
[2019-12-07 11:47] LABS: Bilirubin,Total 1.4 mg/dL (0.3-1.0); Calcium 7.3 mg/dL (8.6-10.3); Globulin 1.5 g/dL (2.4-3.5); Magnesium 1.5 mg/dL (1.6-2.6); Potassium 3.6 mEq/L (3.5-5.1); Total Protein 4.5 g/dL (6.4-8.9)
[2019-12-07 13:21] LABS: Bilirubin,Urine Negative (Negative); Blood,Urine Trace-lysed (Negative); Clarity,Urine Clear (Clear); Color,Urine Yellow (Yellow); Glucose,Urine (UA) Normal (Normal); Ketones,Urine Negative (Negative); Leukocyte Esterase,Urine Negative (Negative); Nitrite,Urine Negative (Negative); PH,Urine 6.5 pH Units (5.0-8.0); Protein,Urine 100 mg/dL (Neg-Trace); Urobilinogen,Urine Normal (Normal)
[2019-12-07 13:22] LABS: RBC,Urine 0-3 per hpf (0-3)
[2019-12-07 13:23] LABS: Bacteria,Urine Few per hpf (None-Few)
[2019-12-07 15:30] LABS: Hemoglobin 9.1 g/dL (12.9-16.9); Mean Corpuscular HGB Conc 30.3 g/dL (31.6-35.5); Mean Corpuscular Hemoglobin 31.1 pg (28.0-33.3); Mean Corpuscular Volume 102.4 fL (83.0-100.0); Mean Platelet Volume 12.8 fL (9.4-12.4); Nucleated Red Blood Cells 0.1 /100 WBC (0); Platelet Count 200 K/mcL (140-400); Red Blood Count 2.93 M/mcL (4.19-5.50); Red Cell Distribution Width 20.8 % (11.5-14.5)
[2019-12-07 15:33] LABS: White Blood Count 52.6 K/mcL (4.3-11.1)
[2019-12-07] MEDS ORDERED: Piperacillin/Tazobactam 3.375 GM in 0.9 % Sodium Chloride Mini Bag 100 ML IVPB SCH (16:00)
[2019-12-07 16:06] LABS: Lymphocytes # 1.1 K/mcL (0.6-4.6); Monocytes # 1.1 K/mcL (0.0-1.3); Neutrophils # 50.5 K/mcL (1.6-8.9); Platelet Estimate Normal (Normal)
[2019-12-07 16:07] LABS: Ovalocytes 1+ (Not Present); Poikilocytosis 1+ (Not Present)
[2019-12-07 16:08] LABS: Macrocytosis Present (Not Present); Microcytosis Present (Not Present)
[2019-12-07] MEDS: Cefepime HCl 2,000 MG in Water for inj. (sterile) 20 ML IVP SCH (17:16)
[2019-12-07] MEDS: Doxycycline 100 MG in 0.9 % Sodium Chloride Mini Bag 100 ML IVPB SCH (17:16)
[2019-12-07] MEDS: Vancomycin Oral Soln 125 MG/2.5 ML UDC PO SCH ×2 (17:17→20:12)
[2019-12-07] MEDS: *HR* Heparin 5,000 UNIT/ML VIAL SQ SCH (17:17)
[2019-12-07] MEDS: MetroNIDAZOLE 500 MG/100 ML 500 MG/100 ML BAG IVPB SCH ×2 (17:30→23:34)
[2019-12-07] MEDS: Albumin Human 5% 12.5 GM/250 ML IV.SOLN IVC SCH ×2 (17:33→20:11)
[2019-12-07] MEDS ORDERED: Cefepime HCl 2,000 MG in Water for inj. (sterile) 20 ML IVP SCH (18:00)
[2019-12-08 03:47] LABS: Basophils % 0.1 %; Eosinophils % 0.1 %; Hematocrit 23.1 % (37.5-50.1); Immature Granulocytes % 1.3 % (0-4); Lymphocytes # 1.1 K/mcL (0.6-4.6); Lymphocytes % 6.2 %; Mean Corpuscular HGB Conc 30.3 g/dL (31.6-35.5); Mean Corpuscular Volume 102.2 fL (83.0-100.0); Mean Platelet Volume 12.9 fL (9.4-12.4); Monocytes # 0.8 K/mcL (0.0-1.3); Monocytes % 4.6 %; Neutrophils # 16.1 K/mcL (1.6-8.9); Platelet Count 104 K/mcL (140-400); Red Blood Count 2.26 M/mcL (4.19-5.50); Red Cell Distribution Width 20.5 % (11.5-14.5); Segmented Neutrophils % 87.7 %
[2019-12-08 03:48] LABS: White Blood Count 18.3 K/mcL (4.3-11.1)
[2019-12-08 04:04] LABS: Calcium 7.2 mg/dL (8.6-10.3); Magnesium 1.6 mg/dL (1.6-2.6); Potassium 3.4 mEq/L (3.5-5.1)
[2019-12-08] MEDS: Cefepime HCl 2,000 MG in Water for inj. (sterile) 20 ML IVP SCH ×2 (05:25→17:40)
[2019-12-08] MEDS: *HR* Heparin 5,000 UNIT/ML VIAL SQ SCH ×2 (05:27→17:40)
[2019-12-08] MEDS: Doxycycline 100 MG in 0.9 % Sodium Chloride Mini Bag 100 ML IVPB SCH ×2 (05:28→17:41)
[2019-12-08] MEDS: MetroNIDAZOLE 500 MG/100 ML 500 MG/100 ML BAG IVPB SCH ×2 (08:53→15:44)
[2019-12-08] MEDS: Aspirin Enteric Coated 81 MG Tablet PO SCH (08:54)
[2019-12-08 09:15] LABS: Hematocrit 22.8 % (37.5-50.1)
[2019-12-08 14:34] LABS: Hematocrit 23.4 % (37.5-50.1); Hemoglobin 7.2 g/dL (12.9-16.9)
[2019-12-08] MEDS: Norepinephrine 8 MG in 0.9 % Sodium Chloride 250 ML IVC SCH (19:21)
[2019-12-09] MEDS: MetroNIDAZOLE 500 MG/100 ML 500 MG/100 ML BAG IVPB SCH ×3 (00:06→23:27)
[2019-12-09 03:17] LABS: Mean Platelet Volume 12.8 fL (9.4-12.4)
[2019-12-09 03:31] LABS: Eosinophils % 0.8 %; Hematocrit 28.7 % (37.5-50.1); Lymphocytes # 0.7 K/mcL (0.6-4.6); Lymphocytes % 14.5 %; Mean Corpuscular Hemoglobin 31.6 pg (28.0-33.3); Mean Corpuscular Volume 101.8 fL (83.0-100.0); Monocytes # 0.2 K/mcL (0.0-1.3); Monocytes % 3.7 %; Neutrophils # 4.1 K/mcL (1.6-8.9); Red Blood Count 2.82 M/mcL (4.19-5.50); Red Cell Distribution Width 20.2 % (11.5-14.5); White Blood Count 5.1 K/mcL (4.3-11.1)
[2019-12-09 03:36] LABS: Calcium 7.6 mg/dL (8.6-10.3); Magnesium 1.9 mg/dL (1.6-2.6); Potassium 3.6 mEq/L (3.5-5.1)
[2019-12-09 03:57] LABS: Hemoglobin 8.9 g/dL (12.9-16.9); Platelet Count 63 K/mcL (140-400)
[2019-12-09] MEDS: Cefepime HCl 2,000 MG in Water for inj. (sterile) 20 ML IVP SCH (05:57)
[2019-12-09] MEDS: Doxycycline 100 MG in 0.9 % Sodium Chloride Mini Bag 100 ML IVPB SCH ×2 (05:58→16:40)
[2019-12-09] MEDS: *HR* Heparin 5,000 UNIT/ML VIAL SQ SCH (05:58)
[2019-12-09] MEDS: Aspirin Enteric Coated 81 MG Tablet PO SCH (08:03)
[2019-12-09] MEDS ORDERED: Potassium Chloride Elixir 20 MEQ/15 ML UDC PO ONE (09:14)
[2019-12-09] MEDS: Norepinephrine 8 MG in 0.9 % Sodium Chloride 250 ML IVC SCH (10:25)
[2019-12-09] MEDS ORDERED: Aminoglycoside Consult 1 EACH MC ONE (13:53)
[2019-12-09] MEDS ORDERED: Naloxone 0.4 MG/ML INJ IVP PRN (16:12)
[2019-12-09] MEDS ORDERED: Norepinephrine 8 MG in 0.9 % Sodium Chloride 250 ML IVC SCH (16:12)
[2019-12-09] MEDS: Gabapentin 100 MG CAPSULE PO SCH ×2 (16:40→22:12)
[2019-12-10] MEDS: Doxycycline 100 MG in 0.9 % Sodium Chloride Mini Bag 100 ML IVPB SCH (06:00)
[2019-12-10] MEDS: Cholecalciferol (D-3) 1,000 UNIT (25MCG) TABLET PO SCH (08:56)
[2019-12-10] MEDS: Cyanocobalamin (B-12) 1,000 MCG TABLET PO SCH (08:56)
[2019-12-10] MEDS: Aspirin Enteric Coated 81 MG Tablet PO SCH (08:56)
[2019-12-10] MEDS: predniSONE 5 MG TABLET PO SCH (08:57)
[2019-12-10] MEDS: MetroNIDAZOLE 500 MG/100 ML 500 MG/100 ML BAG IVPB SCH (08:57)
[2019-12-10] MEDS: Gabapentin 100 MG CAPSULE PO SCH ×3 (08:57→20:44)
[2019-12-10 13:50] LABS: Eosinophils % 1.3 %; Hemoglobin 8.2 g/dL (12.9-16.9); Platelet Count 129 K/mcL (140-400); Red Cell Distribution Width 19.9 % (11.5-14.5)
[2019-12-10 13:52] LABS: Basophils % 0.2 %; Eosinophils # 0.1 K/mcL (0.0-0.6); Immature Granulocytes % 1.5 % (0-4); Immature Platelets 17.4 % (1.1-6.1); Lymphocytes # 0.4 K/mcL (0.6-4.6); Mean Corpuscular HGB Conc 30.4 g/dL (31.6-35.5); Mean Corpuscular Hemoglobin 30.9 pg (28.0-33.3); Mean Corpuscular Volume 101.9 fL (83.0-100.0); Mean Platelet Volume 13.5 fL (9.4-12.4); Monocytes # 0.3 K/mcL (0.0-1.3); Neutrophils # 4.6 K/mcL (1.6-8.9); Red Blood Count 2.65 M/mcL (4.19-5.50); White Blood Count 5.4 K/mcL (4.3-11.1)
[2019-12-10 14:07] LABS: Calcium 8.9 mg/dL (8.6-10.3); Potassium 4.3 mEq/L (3.5-5.1)
[2019-12-10] MEDS: metroNIDAZOLE 500 MG TABLET PO SCH ×2 (15:50→20:43)
[2019-12-10] MEDS: Cefdinir 300 MG CAPSULE PO SCH ×2 (15:50→20:43)
[2019-12-10] MEDS ORDERED: 0.9 % Sodium Chloride 250 ML IVC ONE (20:42)
[2019-12-10] MEDS: Doxycycline 100 MG CAPSULE PO SCH (20:44)
[2019-12-10] MEDS: Lactobacillus 1 EACH CAP.SPRINK PO SCH (20:44)
[2019-12-11 01:24] LABS: Hematocrit 23.4 % (37.5-50.1); Hemoglobin 7.2 g/dL (12.9-16.9); Mean Corpuscular HGB Conc 30.8 g/dL (31.6-35.5)
[2019-12-11 01:25] LABS: Immature Platelets 16.4 % (1.1-6.1); Mean Corpuscular Volume 100.9 fL (83.0-100.0); Mean Platelet Volume 13.5 fL (9.4-12.4); Platelet Count 114 K/mcL (140-400); Red Blood Count 2.32 M/mcL (4.19-5.50); Red Cell Distribution Width 19.7 % (11.5-14.5); Segmented Neutrophils % 69.6 %; White Blood Count 4.2 K/mcL (4.3-11.1)
[2019-12-11 01:26] LABS: Basophils % 0.2 %; Eosinophils % 0.9 %; Immature Granulocytes % 1.2 % (0-4); Lymphocytes % 22.9 %; Monocytes # 0.2 K/mcL (0.0-1.3); Monocytes % 5.2 %; Neutrophils # 2.9 K/mcL (1.6-8.9)
[2019-12-11 01:38] LABS: Anisocytosis 2+ (Not Present); Burr Cells 1+ (Not Present); Macrocytosis Present (Not Present); Poikilocytosis 2+ (Not Present); Polychromasia 1+ (Not Present)
[2019-12-11 01:39] LABS: Large Platelets Present (Not Present); Platelet Estimate Slight Decrease (Normal)
[2019-12-11 01:42] LABS: Calcium 8.3 mg/dL (8.6-10.3); Potassium 4.4 mEq/L (3.5-5.1)
[2019-12-11] MEDS: Doxycycline 100 MG CAPSULE PO SCH (09:00)
[2019-12-11] MEDS: Cholecalciferol (D-3) 1,000 UNIT (25MCG) TABLET PO SCH (09:01)
[2019-12-11] MEDS: metroNIDAZOLE 500 MG TABLET PO SCH (09:01)
[2019-12-11] MEDS: predniSONE 5 MG TABLET PO SCH (09:01)
[2019-12-11] MEDS: Aspirin Enteric Coated 81 MG Tablet PO SCH (09:01)
[2019-12-11] MEDS: Cyanocobalamin (B-12) 1,000 MCG TABLET PO SCH (09:01)
[2019-12-11] MEDS: Lactobacillus 1 EACH CAP.SPRINK PO SCH (09:01)
[2019-12-11] MEDS: Gabapentin 100 MG CAPSULE PO SCH (09:01)
[2019-12-11] MEDS: Cefdinir 300 MG CAPSULE PO SCH (09:01)
[2019-12-11 11:26] VITALS: BP 110/72
[2019-12-12] MEDS ORDERED: Primidone 50 MG TABLET PO SCH (09:00)
== END 2019-12-11 13:54 | disposition home health service (06) | DRG 871 ==
LOC: 2NENU 09:33 → SUATTDRO 10:33 → ICNU 14:05 → 2ANU 12-09 15:11
PROVIDERS: ADMIT Internal Medicine; ATTEND Internal Medicine

== ENCOUNTER 2020-01-20 08:07 | Inpatient (IN) ==
[2020-01-20] MEDS ORDERED: Ipratropium/Albuterol Neb 3 ML IH PRN (12:37)
[2020-01-20] MEDS ORDERED: Vancomycin 1,250 MG/262.5 ML IV.SOLN IVPB ONE (13:00)
[2020-01-20] MEDS: *HR* Heparin 5,000 UNIT/ML VIAL SQ SCH ×2 (14:19→20:44)
[2020-01-20 14:54] LABS: Bilirubin,Urine Negative (Negative); Blood,Urine Negative (Negative); Clarity,Urine Cloudy (Clear); Color,Urine Yellow (Yellow); Glucose,Urine (UA) Normal (Normal); Ketones,Urine Negative (Negative); Leukocyte Esterase,Urine Moderate (Negative); Nitrite,Urine Negative (Negative); Protein,Urine Trace mg/dL (Neg-Trace); Specific Gravity,Urine 1.016 (1.010-1.025)
[2020-01-20 14:56] LABS: Bacteria,Urine Few per hpf (None-Few); Hyaline Casts,Urine None Seen per lpf (None-Few); Squamous Epithelial Cell,Urine None Seen per lpf (None-Few); WBC,Urine 50-100 per hpf (0-3)
[2020-01-20] MEDS: Piperacillin/Tazobactam 3.375 GM in 0.9 % Sodium Chloride Mini Bag 100 ML IVPB SCH (16:32)
[2020-01-20 17:38] LABS: Source,Synovial Fluid R knee
[2020-01-20 18:37] LABS: Color,Synovial Fluid Straw (Straw)
[2020-01-20 18:38] LABS: Appearance,Synovial Fluid Hazy (Clear-Hazy)
[2020-01-21] MEDS: Piperacillin/Tazobactam 3.375 GM in 0.9 % Sodium Chloride Mini Bag 100 ML IVPB SCH ×3 (00:57→14:36)
[2020-01-21 04:15] LABS: Basophils % 0.2 %; Eosinophils % 0.6 %; Hematocrit 23.6 % (37.5-50.1); Immature Granulocytes % 0.9 % (0-4); Lymphocytes # 1.3 K/mcL (0.6-4.6); Lymphocytes % 20.7 %; Mean Corpuscular HGB Conc 29.7 g/dL (31.6-35.5); Mean Corpuscular Hemoglobin 30.8 pg (28.0-33.3); Mean Platelet Volume 12.2 fL (9.4-12.4); Monocytes # 0.5 K/mcL (0.0-1.3); Monocytes % 8.4 %; Neutrophils # 4.4 K/mcL (1.6-8.9); Platelet Count 172 K/mcL (140-400); Red Blood Count 2.27 M/mcL (4.19-5.50); Red Cell Distribution Width 18.6 % (11.5-14.5); Segmented Neutrophils % 69.2 %; White Blood Count 6.4 K/mcL (4.3-11.1)
[2020-01-21 04:30] LABS: Albumin 2.7 g/dL (3.5-5.7); Albumin/Globulin Ratio 1.2 (1.1-2.2); Bilirubin,Total 0.7 mg/dL (0.3-1.0); Globulin 2.2 g/dL (2.4-3.5); Magnesium 1.7 mg/dL (1.6-2.6); Potassium 4.2 mEq/L (3.5-5.1); Total Protein 4.9 g/dL (6.4-8.9)
[2020-01-21] MEDS: *HR* Heparin 5,000 UNIT/ML VIAL SQ SCH ×3 (06:04→21:15)
[2020-01-21] MEDS: Aspirin Enteric Coated 81 MG Tablet PO SCH (08:17)
[2020-01-21] MEDS: allopurinoL 100 MG TABLET PO SCH (08:18)
[2020-01-21] MEDS ORDERED: levoFLOXacin 750 MG/150 ML 750 MG/150 ML BAG IVPB SCH (09:00)
[2020-01-21] MEDS: Gabapentin 300 MG CAPSULE PO SCH ×2 (13:07→21:16)
[2020-01-21 16:46] LABS: Hematocrit 22.8 % (37.5-50.1); Hemoglobin 6.9 g/dL (12.9-16.9)
[2020-01-21] MEDS ORDERED: 0.9 % Sodium Chloride 250 ML ONE (18:10)
[2020-01-21] MEDS ORDERED: 0.9 % Sodium Chloride 500 ML IVC ONE (20:59)
[2020-01-21 21:46] LABS: Hematocrit 24.2 % (37.5-50.1); Hemoglobin 7.4 g/dL (12.9-16.9)
[2020-01-22] MEDS: Piperacillin/Tazobactam 3.375 GM in 0.9 % Sodium Chloride Mini Bag 100 ML IVPB SCH ×4 (00:23→23:41)
[2020-01-22 03:22] LABS: Hematocrit 25.1 % (37.5-50.1); Hemoglobin 7.4 g/dL (12.9-16.9); Mean Corpuscular HGB Conc 29.5 g/dL (31.6-35.5); Mean Corpuscular Hemoglobin 29.4 pg (28.0-33.3); Mean Corpuscular Volume 99.6 fL (83.0-100.0); Mean Platelet Volume 12.5 fL (9.4-12.4); Platelet Count 174 K/mcL (140-400); Red Blood Count 2.52 M/mcL (4.19-5.50); Red Cell Distribution Width 20.7 % (11.5-14.5)
[2020-01-22 03:37] LABS: Calcium 7.9 mg/dL (8.6-10.3); Potassium 3.9 mEq/L (3.5-5.1)
[2020-01-22 03:57] LABS: Folate 9.4 ng/mL (3.0-16.0)
[2020-01-22] MEDS: *HR* Heparin 5,000 UNIT/ML VIAL SQ SCH (06:20)
[2020-01-22] MEDS ORDERED: Iron Sucrose Complex 400 MG in 0.9 % Sodium Chloride 250 ML IVPB ONE (07:30)
[2020-01-22] MEDS: Aspirin Enteric Coated 81 MG Tablet PO SCH (08:25)
[2020-01-22] MEDS: allopurinoL 100 MG TABLET PO SCH (08:25)
[2020-01-22] MEDS: predniSONE 5 MG TABLET PO SCH (08:25)
[2020-01-22] MEDS: Cyanocobalamin (B-12) 1,000 MCG/ML VIAL IM SCH (08:25)
[2020-01-22] MEDS: Gabapentin 300 MG CAPSULE PO SCH ×3 (08:25→20:29)
[2020-01-22] MEDS: Primidone 50 MG TABLET PO SCH (08:25)
[2020-01-22] MEDS ORDERED: Cyanocobalamin (B-12) 1,000 MCG TABLET PO SCH (09:00)
[2020-01-22] MEDS ORDERED: 0.9 % Sodium Chloride 1,000 ML IVC SCH (10:45)
[2020-01-23 05:11] LABS: Basophils % 0.2 %; Eosinophils # 0.1 K/mcL (0.0-0.6); Hematocrit 24.4 % (37.5-50.1); Hemoglobin 7.5 g/dL (12.9-16.9); Lymphocytes # 1.5 K/mcL (0.6-4.6); Lymphocytes % 25.7 %; Mean Corpuscular HGB Conc 30.7 g/dL (31.6-35.5); Mean Corpuscular Hemoglobin 30.5 pg (28.0-33.3); Mean Corpuscular Volume 99.2 fL (83.0-100.0); Mean Platelet Volume 12.7 fL (9.4-12.4); Monocytes # 0.5 K/mcL (0.0-1.3); Monocytes % 9.2 %; Platelet Count 194 K/mcL (140-400); Red Blood Count 2.46 M/mcL (4.19-5.50); Red Cell Distribution Width 20.2 % (11.5-14.5); Segmented Neutrophils % 61.9 %; White Blood Count 5.9 K/mcL (4.3-11.1)
[2020-01-23 05:18] LABS: Neutrophils # 3.7 K/mcL (1.6-8.9)
[2020-01-23 05:28] LABS: Calcium 7.8 mg/dL (8.6-10.3)
[2020-01-23 05:51] LABS: Platelet Estimate Normal (Normal)
[2020-01-23] MEDS: Cyanocobalamin (B-12) 1,000 MCG/ML VIAL IM SCH (08:06)
[2020-01-23] MEDS: Primidone 50 MG TABLET PO SCH (08:06)
[2020-01-23] MEDS: Gabapentin 300 MG CAPSULE PO SCH ×3 (08:06→19:53)
[2020-01-23] MEDS: predniSONE 5 MG TABLET PO SCH (08:06)
[2020-01-23] MEDS: allopurinoL 100 MG TABLET PO SCH (08:06)
[2020-01-23] MEDS: Piperacillin/Tazobactam 3.375 GM in 0.9 % Sodium Chloride Mini Bag 100 ML IVPB SCH (08:07)
[2020-01-23] MEDS: Azithromycin 500 MG in 0.9 % Sodium Chloride 250 ML IVPB SCH (11:23)
[2020-01-23] MEDS ORDERED: 0.9 % Sodium Chloride 500 ML IVC SCH (13:30)
[2020-01-23] MEDS: cefTRIAXone 2,000 MG in Water for inj. (sterile) 20 ML IVP SCH (15:24)
[2020-01-24 00:42] LABS: Basophils % 0.2 %; Eosinophils # 0.1 K/mcL (0.0-0.6); Eosinophils % 0.8 %; Hematocrit 25.9 % (37.5-50.1); Hemoglobin 7.8 g/dL (12.9-16.9); Immature Granulocytes % 1.4 % (0-4); Lymphocytes # 1.6 K/mcL (0.6-4.6); Lymphocytes % 19.5 %; Mean Corpuscular HGB Conc 30.1 g/dL (31.6-35.5); Mean Corpuscular Hemoglobin 29.4 pg (28.0-33.3); Mean Corpuscular Volume 97.7 fL (83.0-100.0); Mean Platelet Volume 12.8 fL (9.4-12.4); Monocytes # 0.8 K/mcL (0.0-1.3); Monocytes % 9.7 %; Neutrophils # 5.7 K/mcL (1.6-8.9); Platelet Count 242 K/mcL (140-400); Red Blood Count 2.65 M/mcL (4.19-5.50); Red Cell Distribution Width 20.1 % (11.5-14.5); Segmented Neutrophils % 68.4 %; White Blood Count 8.3 K/mcL (4.3-11.1)
[2020-01-24 01:08] LABS: Anisocytosis 2+ (Not Present); Microcytosis Present (Not Present); Platelet Estimate Normal (Normal)
[2020-01-24 01:43] LABS: Calcium 7.9 mg/dL (8.6-10.3); Potassium 3.9 mEq/L (3.5-5.1)
[2020-01-24] MEDS: allopurinoL 100 MG TABLET PO SCH (08:17)
[2020-01-24] MEDS: Gabapentin 300 MG CAPSULE PO SCH (08:17)
[2020-01-24] MEDS: Cyanocobalamin (B-12) 1,000 MCG/ML VIAL IM SCH (08:17)
[2020-01-24] MEDS: Primidone 50 MG TABLET PO SCH (08:17)
[2020-01-24] MEDS: predniSONE 5 MG TABLET PO SCH (08:17)
[2020-01-24] MEDS ORDERED: 0.9 % Sodium Chloride 500 ML IVC ONE ×2 (11:14→17:09)
[2020-01-24] MEDS: Azithromycin 500 MG in 0.9 % Sodium Chloride 250 ML IVPB SCH (11:19)
[2020-01-24] MEDS: cefTRIAXone 2,000 MG in Water for inj. (sterile) 20 ML IVP SCH (16:26)
[2020-01-24] MEDS ORDERED: Gabapentin 300 MG CAPSULE PO SCH (21:00)
[2020-01-25 02:09] LABS: Basophils % 0.1 %; Eosinophils # 0.1 K/mcL (0.0-0.6); Eosinophils % 0.7 %; Hematocrit 22.4 % (37.5-50.1); Hemoglobin 7.1 g/dL (12.9-16.9); Immature Granulocytes % 1.6 % (0-4); Lymphocytes # 1.9 K/mcL (0.6-4.6); Lymphocytes % 26.5 %; Mean Corpuscular HGB Conc 31.7 g/dL (31.6-35.5); Mean Corpuscular Volume 100.9 fL (83.0-100.0); Mean Platelet Volume 12.7 fL (9.4-12.4); Monocytes # 0.8 K/mcL (0.0-1.3); Platelet Count 230 K/mcL (140-400); Red Blood Count 2.22 M/mcL (4.19-5.50); Red Cell Distribution Width 20.4 % (11.5-14.5); Segmented Neutrophils % 59.1 %
[2020-01-25 02:24] LABS: Neutrophils # 4.1 K/mcL (1.6-8.9)
[2020-01-25 02:26] LABS: Potassium 3.8 mEq/L (3.5-5.1)
[2020-01-25 02:27] LABS: Calcium 7.8 mg/dL (8.6-10.3)
[2020-01-25 02:57] LABS: Anisocytosis 1+ (Not Present); Reactive Lymphocytes Present (Not Present)
[2020-01-25 02:58] LABS: Platelet Estimate Normal (Normal); Poikilocytosis 2+ (Not Present)
[2020-01-25] MEDS: Primidone 50 MG TABLET PO SCH (07:53)
[2020-01-25] MEDS: allopurinoL 100 MG TABLET PO SCH (07:54)
[2020-01-25] MEDS: predniSONE 5 MG TABLET PO SCH (07:54)
[2020-01-25] MEDS: Cyanocobalamin (B-12) 1,000 MCG/ML VIAL IM SCH (07:54)
[2020-01-25 08:33] LABS: Hematocrit 26.3 % (37.5-50.1); Hemoglobin 7.9 g/dL (12.9-16.9)
[2020-01-25] MEDS ORDERED: Azithromycin 250 MG TABLET PO SCH (09:00)
[2020-01-25 11:25] VITALS: BP 98/60
[2020-01-25] MEDS: cefTRIAXone 2,000 MG in Water for inj. (sterile) 20 ML IVP SCH (16:08)
== END 2020-01-25 18:10 | DRG 871 ==
LOC: 2NENU → SUATTDRO 12:41 → 2ANU 01-21 11:01
PROVIDERS: ADMIT Internal Medicine; ATTEND Family Medicine